=== PATIENT | female | born 1960 | race Caucasian/White ===

== ENCOUNTER → 2022-09-15 | Outpatient (CLI) | payer OTHER | LOC: ORTHO 14:00 | PROVIDERS: ATTEND Orthopaedic Surgery | DX: M75.51 Bursitis of right shoulder (principal); M75.52 Bursitis of left shoulder | CPT/HCPCS: 20610 ==

== ENCOUNTER 2022-10-15 12:32 | Outpatient (CLI) | payer OTHER ==
[~2022-10-15] VITALS: Ht 162.6 cm; Wt 85.5 kg
[2022-10-15] MEDS ORDERED: CETI10TA24 PO (13:43)
[2022-10-15] MEDS ORDERED: LACT1CAP74 PO (13:43)
[2022-10-15] MEDS ORDERED: MAGN420T PO (13:43)
[2022-10-15] MEDS ORDERED: TRAZ150T72 PO (13:43)
[2022-10-15] MEDS ORDERED: CYAN100088 PO (13:43)
[2022-10-15] MEDS ORDERED: LOSA25TA41 PO (13:43)
[2022-10-15] MEDS ORDERED: POTA99CA PO (13:43)
[2022-10-15] MEDS ORDERED: ATOR40TA PO (13:43)
[2022-10-15] MEDS ORDERED: IBUP-2473 PO (13:43)
[2022-10-15] MEDS ORDERED: KRIL500C PO (13:43)
[2022-10-15] MEDS ORDERED: RT-ALBUINH INH (13:43)
[2022-10-15] MEDS ORDERED: ACHD5005 PO (13:43)
[2022-10-15] MEDS ORDERED: BUPR150T24 PO (13:43)
[2022-10-15] MEDS ORDERED: HYDR12.56 PO (13:43)
[2022-10-16] MEDS ORDERED: HYDR-3817 PO (14:25)
== END 2022-10-15 13:54 | disposition home or self-care (01) ==
LOC: PREOP 12:32
PROVIDERS: ATTEND Orthopaedic Surgery
DX: Z01.818 Encounter for other preprocedural examination (principal)

== ENCOUNTER → 2022-10-15 | Outpatient (CLI) | payer OTHER ==
[~2022-10-15] MED LIST: ACHD5005 PO; ATOR40TA PO; BUPR150T24 PO; CETI10TA24 PO; CYAN100088 PO; HYDR-3817 PO; HYDR12.56 PO; IBUP-2473 PO; KRIL500C PO; LACT1CAP74 PO; LOSA25TA41 PO; MAGN420T PO; POTA99CA PO; RT-ALBUINH INH; TRAZ150T72 PO
== END ==
LOC: ORTHO 11:23
PROVIDERS: ATTEND Orthopaedic Surgery
DX: S82.891D Other fracture of right lower leg, subsequent encounter for closed fracture with routine healing (principal); X58.XXXD Exposure to other specified factors, subsequent encounter
CPT/HCPCS: 99213

== ENCOUNTER 2022-10-16 10:19 | Day surgery (SDC) | payer OTHER ==
[2022-10-16] VITALS (10 sets, daily range): BP systolic 104–138; BP diastolic 59–84
[~2022-10-16 10:19] MED LIST changes: -HYDR-3817 PO
[2022-10-16] MEDS ORDERED: ceFAZolin INJECTION 2,000 MG in NS (IVPB) 50 ML IV ONE (11:15)
--- NOTE | 2022-10-16 11:41 | Progress Note-Pre Operative ---
Pre-Operative Progress Note Date of Available H&P: Oct 15, 2022 Date H&P Reviewed: Oct 16, 2022 Time H&P Reviewed: 11:35 History & Physical: H&P Reviewed, Patient Examed, No changes noted Pre-Operative Diagnosis: Right Trimalleolar Ankle Fracture COTY GROSS MD Oct 16, 2022 11:41
[2022-10-16] MEDS ORDERED: HYDROmorphone 2 MG/ML VIAL (DILAUDID) ONE ×2 (12:10→14:23)
[2022-10-16] MEDS ORDERED: fentaNYL INJ 100 MCG/2 ML AMP ONE (12:11)
[2022-10-16] MEDS ORDERED: proPOfol 200 MG/20 ML (DIPRIVAN) VIAL IV ONE (12:11)
[2022-10-16] MEDS ORDERED: MIDAZOLAM 2 MG/2 ML (VERSED) VIAL ONE (12:11)
[2022-10-16] MEDS ORDERED: ONDANSETRON 4 MG/2 ML (SDV) Z0FRAN ONE (12:11)
[2022-10-16] MEDS ORDERED: LIDOCAINE PF 2% 5 ML (XYLOCAINE) VIAL ONE (12:11)
[2022-10-16] MEDS ORDERED: NEO/POLY/BAC (NEOSPORIN) OINT 15 GM TUBE ONE (12:12)
[2022-10-16] MEDS ORDERED: BUP/EPI 0.5% 1:200,000 (SENSORCAINE) 30 ML VIAL ONE (12:12)
[2022-10-16] MEDS ORDERED: HYDROmorphone 2 MG/ML VIAL (DILAUDID) IV ONE ×2 (12:15→14:30)
[2022-10-16] MEDS: LACTATED RINGERS 1,000 ML IV PRN ×2 (12:15→13:33)
[2022-10-16] MEDS ORDERED: BUPIVACAINE 0.5% 30 ML (SENSORCAINE) VIAL ONE (13:07)
[2022-10-16] MEDS ORDERED: BUPIVACAINE 0.5% 30 ML (SENSORCAINE) VIAL INJ ONE (13:19)
[2022-10-16] MEDS ORDERED: NEO/POLY/BAC (NEOSPORIN) OINT 15 GM TUBE TOP ONE (13:20)
--- NOTE | 2022-10-16 14:19 | Operative Report - Ortho ---
Operative Report Surgeon (s)/Engine Room Helper (s) Surgeon COTY GROSS MD Engine Room Helper n/a Pre-Operative Diagnosis Right Trimalleolar Ankle Fracture Post-Operative Diagnosis same Operative Report Date of Procedure: Oct 16, 2022 Name of Procedure Performed: Open Reduction and Internal Fixation of Right Trimalleolar Ankle Fracture Description & Findings After obtaining informed consent and marking the patient, patient did receive intravenous antibiotics. Taken to the operating room and general anesthesia was induced. Surgical timeout was taken. The right lower extremity was prepped and draped in the usual sterile fashion. Attention was initially turned to the fibula fracture, incision was made centered over the fracture. Dissection was carried down to the fracture and a periosteal elevator was used to expose the fibula proximally and distally. The fracture was provisionally reduced using a clamp. A [employer] distal fibular plate was selected and placed. A wire was placed distally to position and temporarily hold the plate. A nonlocking screw was placed in the diaphysis of the fibula. 2 nonlocking screws were then placed distally. C-arm demonstrated good position of the plate with near anatomic reduction of the fracture. Wire through the plate was removed. Locking screws were used to fill the distal holes of the plate. One of the prior distal nonlocking screws was changed for a locking screw. Two additional locking screws were placed in the proximal portion of the plate. Clamp was removed. C- arm demonstrated appropriate position of the plate and screws and maintained red uction of the fracture. Attention was turned to the medial side. 2 K-wires for 4.0 cannulated screws were placed percutaneously through the medial malleolar fragment and across the fracture site. The first wire was anterior and the second wire was posterior. C-arm was used to confirm position of the wires. After drilling the distal cortex, 2 4.0 mm cannulated screws were then placed over the wires; both measured 46 mm. Wires were removed. Final C-arm images were obtained in the AP, mortise, and lateral views and demonstrated appropriate reduction of the fractures and hardware in good position. The posterior malleolus fragment had reduced into near anatomic position and it was elected to manage it without additional fixation. Images were transferred to PACS. Wounds were irrigated with normal saline. Closed with 0 vicryl, 3-0 vicryl, and a combination of 3-0 and 4-0 nylon. Wounds were injected with local anesthetic. Dressed with xeroform, 4x4s, ABD, cast padding, soft roll, posterior splint, and HARINI wrap. Patient tolerated the procedure well and was stable to the recovery room. Anesthesia Type General Estimated Blood Loss minimal Specimen(s) collected/removed None COTY GROSS MD Oct 16, 2022 14:19
[2022-10-16] MEDS ORDERED: HYDR-3817 PO ×2 (14:25)
[2022-10-16] MEDS ORDERED: ONDANSETRON 4 MG/2 ML (SDV) Z0FRAN IVP PRN (14:30)
[2022-10-16] MEDS ORDERED: morphine INJ 10 MG/ML 1ML (SYR OR VIAL) IVP ONE (14:30)
--- NOTE | 2022-10-16 14:49 | Anesthesia-General Post-Op ---
General Patient Condition Mental Status/LOC: Same as Preop Cardiovascular: Satisfactory Nausea/Vomiting: Absent Respiratory: Satisfactory Pain: Controlled Complications: Absent Post Op Complications Complications None Follow Up Care/Instructions Patient Instructions None needed. Anesthesia/Patient Condition Patient Condition Patient is awake in PACU and doing well, C/O ankle pain which is to be expected, stable vital signs, no apparent adverse anesthesia problems. No complications reported per nursing. TED ELIZALDE DO Oct 16, 2022 14:49
[2022-10-16] MEDS ORDERED: HYDROcodone/APAP 7.5 MG/325 MG (LORTAB, LORCET PLUS) TABLET PO ONE ×2 (15:30→15:31)
--- NOTE | 2022-10-16 16:26 | Diagnostic Imaging Report ---
INDICATION: Fluoroscopy for right ankle ORIF. FINDINGS: Fluoroscopy was provided in the OR during right ankle ORIF. 40 seconds of fluoroscopic time was utilized. Four images were obtained demonstrating lateral plate and numerous screws transfixing a distal fibular fracture. There are two partially threaded screws transfixing the medial malleolar fracture. Alignment appears anatomic. IMPRESSION: Fluoroscopy for right ankle ORIF. Dictated by: Dictated on workstation # [id number]
== END 2022-10-16 16:30 | disposition home or self-care (01) ==
LOC: SDC 10:19
PROVIDERS: ATTEND Orthopaedic Surgery
DX: S82.851A Displaced trimalleolar fracture of right lower leg, initial encounter for closed fracture (principal); F17.210 Nicotine dependence, cigarettes, uncomplicated; W54.1XXA Struck by dog, initial encounter
CPT/HCPCS: 76000; 87081

== ENCOUNTER → 2022-10-29 | Outpatient (CLI) | payer OTHER ==
[~2022-10-29] MED LIST changes: +HYDR-3817 PO
== END ==
LOC: ORTHO 10:31
PROVIDERS: ATTEND Orthopaedic Surgery
DX: Z47.89 Encounter for other orthopedic aftercare (principal)

== ENCOUNTER → 2022-11-26 | Outpatient (CLI) | payer OTHER ==
--- NOTE | 2022-11-26 13:16 | Diagnostic Imaging Report ---
EXAMINATION: Right ankle radiographs, 3 views. COMPARISON: Radiographs September 10, 2022. HISTORY: 62-year-old female, right ankle fracture. Follow-up exam. Right ankle pain. FINDINGS: There are intact lag screws in the medial malleolus with a persistent fracture line at the level of the medial malleolar fracture. The fixation screws are intact. There is intact sideplate and screw fixation hardware along the distal fibula. There is no residual fracture line in the distal fibula. The alignment of the ankle mortise is unremarkable. There is no tibiotalar joint effusion. There is very mild degenerative type calcaneal enthesopathy. IMPRESSION: 1. Intact fixation screws traversing the medial malleolar fracture with persistent visible fracture line. 2. Intact sideplate and screw fixation hardware at the level of the distal fibula without residual fracture line. 3. Unremarkable alignment of the ankle mortise. Dictated by: Dictated on workstation # [id number]
== END ==
LOC: ORTHO 10:33
PROVIDERS: ATTEND Orthopaedic Surgery
DX: S82.851D Displaced trimalleolar fracture of right lower leg, subsequent encounter for closed fracture with routine healing (principal); X58.XXXD Exposure to other specified factors, subsequent encounter
CPT/HCPCS: 73610

== ENCOUNTER → 2022-12-29 | Outpatient (CLI) | payer OTHER ==
--- NOTE | 2022-12-29 14:30 | Diagnostic Imaging Report ---
EXAMINATION: Right ankle 3 views HISTORY: Ankle fracture COMPARISON: 11/26/2022 FINDINGS: Mortise is intact. There has been fixation of medial and lateral malleolar fractures. There is incomplete healing of the medial malleolar fracture. No new fracture is seen. IMPRESSION: 1. Internal fixation of bimalleolar fractures with incomplete healing of the medial malleolar fracture. Dictated by: Dictated on workstation # [id number]
== END ==
LOC: ORTHO 09:49
PROVIDERS: ATTEND Orthopaedic Surgery
DX: S82.851D Displaced trimalleolar fracture of right lower leg, subsequent encounter for closed fracture with routine healing (principal); X58.XXXD Exposure to other specified factors, subsequent encounter
CPT/HCPCS: 73610

== ENCOUNTER → 2023-01-19 | Outpatient (CLI) | payer OTHER | LOC: ORTHO 14:32 | PROVIDERS: ATTEND Orthopaedic Surgery | DX: Z47.89 Encounter for other orthopedic aftercare (principal) ==

== ENCOUNTER → 2023-02-23 | Outpatient (CLI) | payer OTHER | LOC: ORTHO 10:43 | PROVIDERS: ATTEND Orthopaedic Surgery | DX: Z47.89 Encounter for other orthopedic aftercare (principal) | CPT/HCPCS: 99213 ==

== ENCOUNTER → 2023-03-25 | Outpatient (CLI) | payer OTHER | LOC: ORTHO 11:21 | PROVIDERS: ATTEND Orthopaedic Surgery | DX: S82.852D Displaced trimalleolar fracture of left lower leg, subsequent encounter for closed fracture with routine healing (principal) | CPT/HCPCS: 99213 ==